=== PATIENT | male | born 1990 | race African-American/Black ===

== ENCOUNTER 2018-10-17 10:39 | Emergency (ER) | payer OTHER ==
[~2018-10-17] VITALS: Ht 190.5 cm; Wt 88.5 kg
[2018-10-17] MEDS ORDERED: NAPROSYN500 MG PO (11:50)
[2018-10-17 11:59] VITALS: BP 137/73
--- NOTE | 2018-10-17 22:03 | EKG ---
[place] [address] [employer] [facility] [place] [address] ELECTROCARDIOGRAM REPORT Name: AMARJITLYNNVANESA Room #: DEP AUGUSTIN Dorman#: [id number] Admission: 10/17/18 Attend Phys: Discharge: 10/17/18 Date of : [birth year] Report #: [id number] THIS REPORT FOR: //name// [facility] ED Test Date: 2018-10-17 Test Time: 11:24:01 Pat Name: GENNA OCASIO Department: Room: Gender: [facility] [employer] [facility] [employer]: : 1990 Requested By: Kaleb Rose Order Number: [id number] MD: Hans Tee Measurements Intervals [place] Rate: 52 P: 57 ID: [id number] QRS: 53 QRSD: 81 T: 30 QT: 433 QTc: 403 Interpretive Statements Sinus rhythm Probable left atrial enlargement Early transition Nonspecific ST-T wave changes No previous ECG available for comparison Electronically Signed On 10-17-2018 22:02:44 SCANNER OPERATOR by Hans Tee [email or web address] <ELECTRONICALLY SIGNED> By: Hans Tee MD 10/17/18 [id number] Hans Tee MD /RAUL
== END 2018-10-17 12:05 | disposition home or self-care (01) ==
LOC: ER 10:39
DX: R07.89 Other chest pain (principal); J45.909 Unspecified asthma, uncomplicated

== ENCOUNTER 2020-01-02 21:13 | Emergency (ER) | payer OTHER ==
[~2020-01-02] VITALS: Ht 190.5 cm; Wt 93.0 kg
[~2020-01-02 21:13] MED LIST: NAPROSYN500 MG PO
[2020-01-03] MEDS ORDERED: ULTRAM 50MG TAB50 MG PO (00:20)
[2020-01-03 01:11] VITALS: BP 133/81
== END 2020-01-03 01:15 | disposition home or self-care (01) ==
LOC: ER 21:13
DX: S83.91XA Sprain of unspecified site of right knee, initial encounter (principal); J45.909 Unspecified asthma, uncomplicated; Z79.899 Other long term (current) drug therapy; X50.1XXA Overexertion from prolonged static or awkward postures, initial encounter; Y93.89 Activity, other specified; Y92.89 Other specified places as the place of occurrence of the external cause; Y99.8 Other external cause status